=== PATIENT | male | born 1960 | race Caucasian/White ===

== ENCOUNTER 2019-04-13 07:19 | Emergency (ER) | payer MEDICAID ==
[~2019-04-13] VITALS: Ht 185.4 cm; Wt 75.0 kg
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
[2019-04-13] MEDS ORDERED: acetaminophen 325mg tablet PO ONE (10:30)
[2019-04-13 10:57] VITALS: BP 150/104
== END 2019-04-13 10:34 | disposition short-term general hospital (02) ==
LOC: ER 07:21
DX: S02.69XA Fracture of mandible of other specified site, initial encounter for closed fracture (principal); S05.11XA Contusion of eyeball and orbital tissues, right eye, initial encounter; Z60.2 Problems related to living alone; Y04.8XXA Assault by other bodily force, initial encounter; Y93.89 Activity, other specified; Y92.89 Other specified places as the place of occurrence of the external cause; Y99.8 Other external cause status
CPT/HCPCS: 99285